=== PATIENT | male | born 1970 | race Caucasian/White ===

== ENCOUNTER 2017-01-02 15:26 | Emergency (ER) | payer OTHER ==
[~2017-01-02] VITALS: Ht 177.8 cm; Wt 99.8 kg
[~2017-01-02 15:26] MED LIST: AMBIEN 10MG TAB10 MG PO; DULOXETINE60 MG PO; EFFEXOR100 MG PO; METHYLPHENIDATE10 MG PO; MODAFINIL100 MG PO; NAPROSYN500 M1 PO; NAPROXEN SODIU500 MG PO; PHENERGAN 25MG.25 M1 PO; PRAMIPEXOLE D0.25 M1 NG; PRAMIPEXOLE DIHY1 M1 PO; ROBAXIN-750750 MG PO; SUBOXONE 8 MG-21 FIL SL; TOPIRAMATE 100100 M1 PO; TOPIRAMATE100 MG PO; TREXIMET 500 MG1 TAB PO; [UNRECOGNIZED DRUG - OTHER] PO
--- NOTE | 2017-01-02 16:10 | RADIOLOGY REPORT PS360 ---
KNEE-3 VIEWS-LT HISTORY: Knee pain following injury INJURIED BOTH KNEES AT WORK YESTERDAY ORDERING PHYSICIAN: QUE CHRISTIAN APRN PATIENT AGE: 46 years COMPARISON: 12/21/2015 FINDINGS: No fracture or dislocation. No lytic or blastic change. Normal mineralization. Tricompartmental osteoarthritic changes are present worse at the patellofemoral joint. No fracture or dislocation. There is a laminated calcific density along the posterior aspect of the knee 2.4 cm consistent with a synovial osteochondroma. IMPRESSION: 1. No acute fracture. 2. Osteoarthritis with synovial osteochondroma
--- NOTE | 2017-01-02 16:11 | RADIOLOGY REPORT PS360 ---
KNEE-3 VIEWS-RT HISTORY: Pain following injury INJURIED BOTH KNEES AT WORK YESTERDAY ORDERING PHYSICIAN: QUE CHRISTIAN APRN PATIENT AGE: 46 years COMPARISON: None FINDINGS: No obvious fracture or dislocation. Mild tricompartmental osteoarthritic changes are present. IMPRESSION: Osteoarthritis, no acute finding
--- NOTE | 2017-01-02 16:14 | Urgent Treatment Center Report ---
History of Present Issue Date/Time Seen by Provider 01/02/17 1613 Visit Reason Pt arrived:Walked Presenting Problem:PT WALKING WITH ALTERED GAIT. STATES HE INJURIED BOTH KNEES YESTERDAY AT WORK WHEN HE WALKED ON A PALLET AND IT BROKE. Location if Accident:Work Onset of symptoms date/time:01/03/17/ or onset unknown for:MEDICAL HX UNKNOWN Have you (or family members/close friends) recently traveled outside the [place]? N If Yes, where/when: Have you had exposure to infectious disease within the past month? TB? Other? Specify: Patient presents with with c/o bilateral knee pain that started yesterday. Injury occurred while working at [employer] at approximately 11:20 on 01/01/17. Patient states he was walking and fell through a wooden pallet twisting and injuring both knees. Hx: arthroscope of bilateral knees (). Rates pain of right knee "8/10" and rates pain of left knee "6/10". Patient missed work today. Has been taking OTC ibuprofen with mild relief. Source patient, family Exam Limitations clinical condition (bilateral knee pain) ALLERGIES Coded Allergies: cephalexin (Mild, 04/05/16) Home Medications Active Scripts Naproxen (Naprosyn 500MG Tab) 500 MG PO BID #14 TAB Prov: 07/04/16 Methocarbamol (Robaxin 750MG) 750 MG PO BID #30 TAB Prov: 04/05/16 Reported Medications METHYLPHENIDATE HCL (Methylphenidate Hydrochloride) 10 MG PO DAILY #180 Topiramate (Topiramate 100MG Tablet) 150 MG PO BID DULOXETINE HCL (Duloxetine) 60 MG PO DAILY #30 Modafinil 100 MG PO BID #60 Topiramate 100 MG PO #60 PRAMIPEXOLE DI-HCL (Pramipexole Dihydrochloride) 1 MG PO PRN PRN MIAGRAINE #30 PRAMIPEXOLE DI-HCL (Pramipexole Dihydrochloride) 0.25 MG NG DAILY #60 Zolpidem Tartrate (Ambien 10MG) 10 MG PO QHS History Medical History General CAD? No Angina: No NV: No Hypertension? No Hyperlipidemia? No CHF? No DVT? No PE? No COPD? No Asthma? No Anemia? No GERD? No Gastric ulcers? No GI Bleed? No Hernia? No Thyroid Problems? No Hypothyroidism? No CVA? No Seizures? No Diabetes? No Renal Insuffiency? No UTI? No Stones? No BPH? No GB Disease: No Nephritic Syndrome? No Asplenia? No Hepatitis? No Sickle Cell Disease? No Arthritis? No Migraines? Yes Cataracts? No Glaucoma? No MRSA? No HIV? No TB? No Anxiety? No Depression? Yes Cancer? No More? Yes Additional hx: SLEEP APNEA Immunization HX DT/Tetanus 1-4 YRS Surgical Hx Previous Surgery?Y OSWALD KNEE SURGERY VARICOSE VEIN REMOVAL APPENDECTOMY LEFT SHOULDER SHARRON HOLE IN SKULL-BLEED RIGHT SHOULDER CRUSHED ANKLE RT Family History Family HX Diabetes No Hypertension No Hyperlipidemia No Cancer No Social History Smoking Hx Smoker: Never Smoker Tobacco: No Alcohol Alcohol: No Review of Systems All Other Systems Reviewed and Negative Constitutional denies chills, denies fever Respiratory denies shortness of breath Cardiovascular denies palpitations Gastrointestinal denies nausea, denies vomiting Musculoskeletal denies joint pain (bilateral knees), denies joint swelling Skin denies change in color Physical Exam Vital Signs Vital Signs Date Time Temp Pulse Resp B/P Pulse O2 O2 Flow FiO2 Ox Delivery Rate 01/02 1737 98.4 74 18 119/57 94 01/02 1542 98.4 74 18 119/57 94 General Appearance normal appearance, WD/WN, no apparent distress Respiratory Status No: respiratory distress, chest symmetrical. Lung Sounds bilateral: normal breath sounds. Cardiovascular normal exam, regular rate/rhythm, no murmur, normal peripheral pulses Peripheral Pulses Pulses normal Yes (DP/PT) Peripheral Pulses 2+ dorsalis pedis (R), 2+ dorsalis pedis (L) Extremities normal capillary refill, no pedal edema, limited range of motion ( bilateral knees), swelling (right knee), Left knee: mildly TTP, no edema/ erythema/ecchymosis noted; limited ROM due to pain with audible moaning noted; moderate crepitus negative tests: García's, Zaki's, Anterior/posterior drawer. Right knee: moderately TTP, mildly edematous without erythema/ecchymosis noted, moderate crepitus; positive García's and Zaki's. Strength 3 Lower Ext (R), 4 Lower Ext (L) Neurologic alert, normal exam, no motor/sensory deficits, oriented x 3, abnormal gait (moderate limp of the right) Reflexes DTR 2+ knee (R), 2+ knee (L), 2+ ankle (R), 2+ ankle (L) Mental status normal mood/affect Medical Decision Making LABS/Meds/Orders Pt receiving controlled substance in ED? No Results/Orders Orders Procedure Date/time Status [facility] STABILIZE JOINT/AREA 01/02 171 Active XRAY/CT/US XRAY/CT/US XRAY knee (bilateral ) XR interpretation by discussed w/radiologist (read report) Xray Results abnormal (read report) Departure Departure Time of Disposition 1705 Disposition DC Home or Self Care(routine) Clinical Impression Primary Impression: Contusion of knee, left Qualifiers: Encounter type: initial encounter Qualified Code: S80.02XA - Contusion of left knee, initial encounter Secondary Impressions: Strain of right knee Qualifiers: Encounter type: initial encounter Qualified Code: S86.911A - Strain of unspecified muscle(s) and tendon(s) at lower leg level, right leg, initial encounter Condition STABLE Referrals Timothy Hauser MD Seen at [facility] for WC injury. Follow-up for bilateral knee contusion and right knee strain. Patient to call and schedule appointment first thing in the morning and notify production bow maker that he was seen at the [facility] clinic. Patient Instructions DI for Contusion, DI for Knee Sprain, How To Perform RICE ( Rest, Ice, Compress, Elevate), How to Use a Knee Immobilizer, How to Use Crutches Discharge Counseling Counseled pt/family regarding diagnosis, test results, medications/RX, home care, follow up needs Prescriptions Current Visit Scripts Ibuprofen (Ibuprofen 800MG) 800 MG PO Q8 PRN bilateral knee pain #90 TAB Diclofenac Sodium (Voltaren) 100 GM TP TID PRN bilateral knee pain #1 TUBE Ref 1 Comments Diclofenac order clarified with [facility] pharmacist; apply 4gm to affected areas tid PRN. at [phone]
--- NOTE | 2017-01-02 16:14 | Urgent Treatment Center Report ---
History of Present Issue Date/Time Seen by Provider 01/02/17 1613 Visit Reason Pt arrived:Walked Presenting Problem:PT WALKING WITH ALTERED GAIT. STATES HE INJURIED BOTH KNEES YESTERDAY AT WORK WHEN HE WALKED ON A PALLET AND IT BROKE. Location if Accident:Work Onset of symptoms date/time:01/03/17/ or onset unknown for:MEDICAL HX UNKNOWN Have you (or family members/close friends) recently traveled outside the [place]? N If Yes, where/when: Have you had exposure to infectious disease within the past month? TB? Other? Specify: Patient presents with with c/o bilateral knee pain that started yesterday. Injury occurred while working at [employer] at approximately 11:20 on 01/01/17. Patient states he was walking and fell through a wooden pallet twisting and injuring both knees. Hx: arthroscope of bilateral knees (). Rates pain of right knee "8/10" and rates pain of left knee "6/10". Patient missed work today. Has been taking OTC ibuprofen with mild relief. Source patient, family Exam Limitations clinical condition (bilateral knee pain) ALLERGIES Coded Allergies: cephalexin (Mild, 04/05/16) Home Medications Active Scripts Naproxen (Naprosyn 500MG Tab) 500 MG PO BID #14 TAB Prov: 07/04/16 Methocarbamol (Robaxin 750MG) 750 MG PO BID #30 TAB Prov: 04/05/16 Reported Medications METHYLPHENIDATE HCL (Methylphenidate Hydrochloride) 10 MG PO DAILY #180 Topiramate (Topiramate 100MG Tablet) 150 MG PO BID DULOXETINE HCL (Duloxetine) 60 MG PO DAILY #30 Modafinil 100 MG PO BID #60 Topiramate 100 MG PO #60 PRAMIPEXOLE DI-HCL (Pramipexole Dihydrochloride) 1 MG PO PRN PRN MIAGRAINE #30 PRAMIPEXOLE DI-HCL (Pramipexole Dihydrochloride) 0.25 MG NG DAILY #60 Zolpidem Tartrate (Ambien 10MG) 10 MG PO QHS History Medical History General CAD? No Angina: No SD: No Hypertension? No Hyperlipidemia? No CHF? No DVT? No PE? No COPD? No Asthma? No Anemia? No GERD? No Gastric ulcers? No GI Bleed? No Hernia? No Thyroid Problems? No Hypothyroidism? No CVA? No Seizures? No Diabetes? No Renal Insuffiency? No UTI? No Stones? No BPH? No GB Disease: No Nephritic Syndrome? No Asplenia? No Hepatitis? No Sickle Cell Disease? No Arthritis? No Migraines? Yes Cataracts? No Glaucoma? No MRSA? No HIV? No TB? No Anxiety? No Depression? Yes Cancer? No More? Yes Additional hx: SLEEP APNEA Immunization HX DT/Tetanus 1-4 YRS Surgical Hx Previous Surgery?Y OSWALD KNEE SURGERY VARICOSE VEIN REMOVAL APPENDECTOMY LEFT SHOULDER SHARRON HOLE IN SKULL-BLEED RIGHT SHOULDER CRUSHED ANKLE RT Family History Family HX Diabetes No Hypertension No Hyperlipidemia No Cancer No Social History Smoking Hx Smoker: Never Smoker Tobacco: No Alcohol Alcohol: No Review of Systems All Other Systems Reviewed and Negative Constitutional denies chills, denies fever Respiratory denies shortness of breath Cardiovascular denies palpitations Gastrointestinal denies nausea, denies vomiting Musculoskeletal denies joint pain (bilateral knees), denies joint swelling Skin denies change in color Physical Exam Vital Signs Vital Signs Date Time Temp Pulse Resp B/P Pulse O2 O2 Flow FiO2 Ox Delivery Rate 01/02 1737 98.4 74 18 119/57 94 01/02 1542 98.4 74 18 119/57 94 General Appearance normal appearance, WD/WN, no apparent distress Respiratory Status No: respiratory distress, chest symmetrical. Lung Sounds bilateral: normal breath sounds. Cardiovascular normal exam, regular rate/rhythm, no murmur, normal peripheral pulses Peripheral Pulses Pulses normal Yes (DP/PT) Peripheral Pulses 2+ dorsalis pedis (R), 2+ dorsalis pedis (L) Extremities normal capillary refill, no pedal edema, limited range of motion ( bilateral knees), swelling (right knee), Left knee: mildly TTP, no edema/ erythema/ecchymosis noted; limited ROM due to pain with audible moaning noted; moderate crepitus negative tests: García's, Zaki's, Anterior/posterior drawer. Right knee: moderately TTP, mildly edematous without erythema/ecchymosis noted, moderate crepitus; positive García's and Zaki's. Strength 3 Lower Ext (R), 4 Lower Ext (L) Neurologic alert, normal exam, no motor/sensory deficits, oriented x 3, abnormal gait (moderate limp of the right) Reflexes DTR 2+ knee (R), 2+ knee (L), 2+ ankle (R), 2+ ankle (L) Mental status normal mood/affect Medical Decision Making LABS/Meds/Orders Pt receiving controlled substance in ED? No Results/Orders Orders Procedure Date/time Status [facility] STABILIZE JOINT/AREA 01/02 171 Active XRAY/CT/US XRAY/CT/US XRAY knee (bilateral ) XR interpretation by discussed w/radiologist (read report) Xray Results abnormal (read report) Departure Departure Time of Disposition 1705 Disposition DC Home or Self Care(routine) Clinical Impression Primary Impression: Contusion of knee, left Qualifiers: Encounter type: initial encounter Qualified Code: S80.02XA - Contusion of left knee, initial encounter Secondary Impressions: Strain of right knee Qualifiers: Encounter type: initial encounter Qualified Code: S86.911A - Strain of unspecified muscle(s) and tendon(s) at lower leg level, right leg, initial encounter Condition STABLE Referrals Timothy Hauser MD Seen at [facility] for WC injury. Follow-up for bilateral knee contusion and right knee strain. Patient to call and schedule appointment first thing in the morning and notify operations technician that he was seen at the [facility] clinic. Patient Instructions DI for Contusion, DI for Knee Sprain, How To Perform RICE ( Rest, Ice, Compress, Elevate), How to Use a Knee Immobilizer, How to Use Crutches Discharge Counseling Counseled pt/family regarding diagnosis, test results, medications/RX, home care, follow up needs Prescriptions Current Visit Scripts Ibuprofen (Ibuprofen 800MG) 800 MG PO Q8 PRN bilateral knee pain #90 TAB Diclofenac Sodium (Voltaren) 100 GM TP TID PRN bilateral knee pain #1 TUBE Ref 1 Comments Diclofenac order clarified with [facility] pharmacist; apply 4gm to affected areas tid PRN. at [phone]
[2017-01-02] MEDS ORDERED: VOLTAREN100 GM TP (17:14)
[2017-01-02] MEDS ORDERED: IBUPROFEN800 MG PO (17:14)
[2017-01-02 17:37] VITALS: BP 119/57
== END 2017-01-02 17:37 | disposition home or self-care (01) ==
LOC: UTC 15:26
PROC: 2W3QX1Z Immobilization of Right Lower Leg using Splint (ICD-10-PCS; principal; 2017-01-02)
DX: S80.02XA Contusion of left knee, initial encounter (principal); S86.911A Strain of unspecified muscle(s) and tendon(s) at lower leg level, right leg, initial encounter; Z88.1 Allergy status to other antibiotic agents; W01.10XA Fall on same level from slipping, tripping and stumbling with subsequent striking against unspecified object, initial encounter; Y92.63 Factory as the place of occurrence of the external cause; Y99.0 Civilian activity done for income or pay

== ENCOUNTER → 2017-01-21 | Outpatient (CLI) | payer OTHER ==
[~2017-01-21] MED LIST changes: +FLONASE 50 MCG16 GM; +IBUPROFEN800 MG PO; +MEDROL 4MG. DOSE4 MG PO; +PROMETHAZINE D118 ML PO; +VOLTAREN100 GM TP; +ZITHROMAX Z PA250 MG PO
--- NOTE | 2017-01-22 07:07 | RADIOLOGY REPORT PS360 ---
MRI-LOW EXT ANY JOINT W/O-RT HISTORY: Posttraumatic pain. Pain laterally ACUTE PAIN OF RIGHT KNEE ORDERING PHYSICIAN: SAADIA BOYD PATIENT AGE: 46 years COMPARISON: Radiograph of 01/02/2017 TECHNIQUE: Standard multiplanar multiecho sequences are performed without contrast. FINDINGS: The cruciate ligaments, collateral ligaments, patellar tendon, and quadriceps tendon appear intact. There is a complex tear involving posterior horn of the medial meniscus having both a longitudinal and horizontal component.. The anterior horn the medial meniscus is unremarkable. There is a horizontal tear involving the interval and of the lateral meniscus. In addition, the posterior horn lateral meniscus is smaller than expected consistent with a tear of the posterior margin with suspected flipped meniscus involving the posterior horn of the lateral meniscus as seen on the coronal image #19 series 7 with meniscus appearing material lying more medial than expected. There are tricompartmental osteoarthritic changes moderate in nature. Osteophytes are present involving all 3 compartments and at the intercondylar and interspinous region. Prominent hypertrophic changes are present along the posterior and proximal aspect of the tibia. On the plain films there was a laminated calcific density in the popliteal fossa. This is not well demonstrated on the MRI and could be better located with CT scan if clinically warranted. There is mild thinning of patellar cartilage. No fracture or dislocation. There is a small knee joint effusion IMPRESSION: 1. Complex tear of the posterior horn of the medial meniscus 2. Horizontal tear of the anterior horn lateral meniscus. 3. Suspected bucket handle tear of the posterior horn of the lateral meniscus with flipped meniscal fragment medially 4. Osteoarthritic change with small knee joint effusion
== END ==
LOC: RAD 10:43
DX: M25.561 Pain in right knee (principal)

== ENCOUNTER 2017-01-29 17:11 | Emergency (ER) | payer OTHER ==
[~2017-01-29] VITALS: Ht 177.8 cm; Wt 97.5 kg
[~2017-01-29 17:11] MED LIST changes: -FLONASE 50 MCG16 GM; -MEDROL 4MG. DOSE4 MG PO; -PROMETHAZINE D118 ML PO; -ZITHROMAX Z PA250 MG PO
--- OUTSIDE RECORDS SUMMARY | 2017-01-29 17:15 | External Medical Summary Rpt | CCD ---
Author Author , TAVARES Organization TAVARES Address Unknown Phone [email or web address] Care Team Providers Care Parish Nurse Name Role Phone YOON NETTLES Unavailable Unavailable TORRES, TORRES Unavailable Unavailable TORRES ALL, TORRES ALL Unavailable Unavailable [facility] Unavailable Unavailable WARD L[facility], Unavailable Unavailable WARD LIS [facility], Unavailable Unavailable [facility] Unavailable Unavailable [place], [facility] [place] [facility] Unavailable Unavailable [place], [facility] [place] [facility] Unavailable Unavailable AND REHA, [facility] ANIA JORGE Unavailable Unavailable [facility] Unavailable Unavailable [facility], [facility] [place] RON, [place] Unavailable Unavailable RON [facility] Unavailable Unavailable INC, [facility] Unavailable [facility]available HOSPITAL P, [facility], Unavailable Unavailable [facility] Unavailable Unavailable [facility], [facility] LORRI BRANCH, LORRI Unavailable Unavailable [facility], Unavailable Unavailable PLLC, [facility] RENUSCH, RENUSCH Unavailable Unavailable RAMEY EDW, RAMEY Unavailable Unavailable EDW SADEK, SADEK Unavailable Unavailable [facility] Unavailable Unavailable [facility] Unavailable Unavailable HOSPITALS, [facility] Purpose Continuity of Care Document - 09-27-2015 through 2016 Problems Code Diagnosis DOS Provider Status [id number] MIGRAINE 07-30-2016 [facility] UNS NOT PHYSICIAN INTRACT W/O GROUP STATUS MIGRAINOSUS 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 R0789 OTHER CHEST 07-04-2016 [facility] R200 ANESTHESIA 07-04-2016 [facility] R51 HEADACHE 07-04-2016 [facility] R600 LOCALIZED 07-04-2016 [facility], [facility] R06965 UNSPECIFIED 04-05-2016 [facility] ED K210 GASTRO-ESOP 04-05-2016 [facility] [facility] REFLUX PLLC DISEASE W/ ESOPHAGITIS K219 GASTRO-ESOP 04-05-2016 E[facility]EN H REFLUX [facility] P WITHOUT ESOPHAGITIS Q02760 OTHER 04-05-2016 [facility], SPASM PLLC R079 CHEST PAIN 04-05-2016 [facility] [id number] PAIN IN 03-09-2016 [facility] U[facility]PEC[facility]IED [facility]EE [facility]PITA [id number] COMPLEX 03-09-2016 [facility] MENISCUS CURR LT KNEE INIT ENC G894 CHRONIC 02-16-2016 [facility] PAIN H SLEEP AND SYNDROME REHA M159 POLYOSTEOAR 02-16-2016 [facility] THRITIS H SLEEP AND UNSPECIFIED REHA T87997 PAIN IN 02-16-2016 [facility] RIGHT H SLEEP AND SHOULDER REHA Q43384 PAIN IN 02-16-2016 [facility] LEFT H SLEEP AND SHOULDER REHA 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 OTH 02-16-2016 [facility] 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 CERV REGION M5412 RADICULOPAT 02-16-2016 [facility] HY CERVICAL H SLEEP AND REGION REHA M7581 OTHER 02-16-2016 [facility] SHOULDER H SLEEP AND LESIONS REHA RIGHT SHOULDER M7582 OTHER 02-16-2016 [facility] SHOULDER H SLEEP AND LESIONS REHA LEFT SHOULDER R202 PARESTHESIA 01-13-2016 [facility] [place] [facility] G8929 OTHER 12-26-2015 [facility] M5080 OTH 12-23-2015 [facility] CERVICAL EAST DISC DISORDERS UNS CERVICAL REGION M1712 UNILATERAL 12-21-2015 [facility] TIS LEFT KNEE [id number] PAIN IN 12-21-2015 [facility] RIGHT KNEE MEM [facility] INC B43044 PAIN IN 12-21-2015 [facility] S06329 ENCOUNTER 12-01-2015 [facility] PHYSICIANS PREPROCEDUR LA AL EXAMINATION Z9889 OTHER 10-25-2015 [facility] SPECIFIED EAST POSTPROCEDU RAL STATES Allergies, Adverse Reactions, Alerts Clinical Alert Notifications Alert Asthma: no influenza vaccine in the last 365 days Medications Na ND Rx Da Fi Fi Am Da Di Ph RX Ph St me C No te ll ll ou ys ag ar # ys at rm s nt no ma ic us Or Da si cy ia de te s n re d ON 57 04 05 9. 3 00 WA Ac DA 23 -2 -1 00 00 L- ti NS 70 4- 9- 0 07 MA ve ET 07 20 20 48 RT RO 71 17 17 42 N 0 39 PH OD AR T MA 4 CY MG #5 TA 91 BL ET TO 68 04 05 60 30 00 AR Ac PI 38 -1 -0 .0 00 L- ti RA 20 3- 5- 00 07 MA ve MA 13 20 20 48 RT TE 91 17 17 22 4 27 PH 50 AR MA MG CY TA #5 BL 91 ET NA 65 03 04 14 7 00 AR Ac OH 16 -3 -2 .0 00 L- ti OX 20 0- 1- 00 07 MA ve EN 19 20 20 47 RT 01 17 17 94 50 1 57 PH 0 AR MG MA CY TA BL #5 ET 91 DE 57 02 03 30 15 00 AR Ac RT 23 -1 -1 .0 00 L- ti AZ 70 0- 0- 00 07 MA ve AP 00 20 20 46 RT IN 83 17 17 99 E 0 87 PH 15 AR MA MG CY TA #5 BL 91 ET DE 57 02 02 15 8 00 AR Ac RT 23 -0 -2 .0 00 L- ti AZ 70 3- 4- 00 07 MA ve AP 00 20 20 46 RT IN 83 17 17 87 E 0 16 PH 15 AR MA MG CY TA #5 BL 91 ET BE 51 01 02 21 7 00 AR Ac NZ 22 -2 -1 .0 00 L- ti ON 40 5- 7- 00 07 MA ve AT 00 20 20 46 RT AT 16 17 17 69 E 0 93 PH 20 AR 0 MA MG CY CA #5 PS 91 UL E OH 13 01 02 60 30 00 AR Ac AM 66 -2 -1 .0 00 L- ti IP 80 5- 7- 00 07 MA ve EX 09 20 20 41 RT OL 29 17 17 86 E 0 87 PH 0. AR 25 MA CY MG #5 TA 91 BL ET OH 00 01 02 10 5 00 AR Ac ED 14 -2 -1 .0 00 L- ti NI 39 5- 7- 00 07 MA ve SO 73 20 20 46 RT NE 80 17 17 69 5 96 PH 20 AR MA MG CY TA #5 BL 91 ET AZ 59 01 02 6. 5 00 AR Ac IT 76 -2 -1 00 00 L- ti HR 23 5- 7- 0 07 MA ve OM 06 20 20 46 RT YC 00 17 17 69 IN 1 95 PH AR 25 MA 0 CY MG #5 TA 91 BL ET VE 00 01 02 18 17 00 WA Ac NT 17 -2 -1 .0 00 L- ti OL 30 5- 7- 00 07 MA ve IN 68 20 20 46 RT 22 17 17 69 HF 0 92 PH A AR 90 MA CY MC G #5 IN 91 BLAKE LE R ON 57 01 02 9. 3 00 WA Ac DA 23 -2 -1 00 00 L- ti NS 70 5- 7- 0 07 MA ve ET 07 20 20 46 RT RO 81 17 17 69 N 0 94 PH OD AR T MA 8 CY MG #5 TA 91 BL ET TO 68 12 01 60 30 00 AR Ac PI 38 -2 -2 .0 00 L- ti RA 20 6- 0- 00 07 MA ve MA 14 20 20 41 RT TE 01 16 17 86 4 81 PH 10 AR 0 MA MG CY TA #5 BL 91 ET ME 00 12 01 30 15 00 AR Ac TH 14 -2 -2 .0 00 L- ti OC 31 9- 0- 00 07 MA ve AR 29 20 20 46 RT BA 20 16 17 15 MO 1 25 PH L AR 75 MA 0 CY MG #5 TA 91 BL ET OH 13 12 01 60 30 00 AR Ac AM 66 -2 -2 .0 00 L- ti IP 80 6- 0- 00 07 MA ve EX 09 20 20 41 RT OL 29 16 17 86 E 0 87 PH 0. AR 25 MA CY MG #5 TA 91 BL ET Procedures Procedure DOS Code Location Performer Comment THERAPEUT 43551 [facility] ANGLE IC 7 PHYSICIAN PROPHYLAC GROUP TIC/DX INJECTION SUBQ/IM INJECTION J1885 [facility] ANGLE 7 PHYSICIAN KETOROLAC GROUP TROMETHAM INE PER 15 MG INJECTION J1885 [facility] ANIA 7 PHYSICIAN KETOROLAC GROUP TROMETHAM INE PER 15 MG THERAPEUT 52512 [facility] ANIA IC 7 PHYSICIAN PROPHYLAC GROUP TIC/DX INJECTION SUBQ/IM INJECTION J2550 [facility] ANIA 7 PHYSICIAN PROMETHAZ GROUP INE HCL UP TO 50 MG CREATINE 19915 E[facility]EN ARELLANO KINASE MB 7 [facility] FRACTION INC INC ONLY COMPREHEN 66346 E[facility] ARELLANO SIVE 7 [facility] METABOLIC INC INC PANEL RADIOLOGI 55092 [facility] C EXAM 7 MEDICAL CHEST 2 IMAGING VIEWS ASS FRONTAL&L ATERAL NATRIURET 87238 [facility] ARELLANO IC 7 [facility] [place] [address] EILEEN ARELLANO TROPONIN 7 MEM HOS[facility]OS[facility] QUANTITAT INC INC BELEM BLOOD 12265 [facility] ARELLANO COUNT 7 [facility] COMPLETE INC INC AUTO&AUTO DIFRNTL WBC ECG 90755 [facility] R[facility] ROUTINE 7 PHYSICIAN ECG S, PLLC W/LEAST 12 LDS I&R ONLY CREATINE 01366 EILEEN ARELLANO KINASE 7 [place] [address] [facility] HEAD/BRAI 7 MEDICAL N W/O IMAGING CONTRAST ASS MATERIAL ECG 81732 EILEEN ARELLANO ROUTINE 7 [facility] ECG INC INC W/LEAST 12 LDS TRCG ONLY W/O I&R FIBRIN 30990 EILEEN ARELLANO DGRADJ 6 MEM H[facility] PRODUCTS INC INC D-DIMER QUAL/SEMI MARIA GUADALUPE ECG 25226 EILEEN ARELLANO ROUTINE 6 [facility] ECG INC INC W/LEAST 12 LDS TRCG ONLY W/O I&R CREATINE 90611 EILEEN ARELLANO KINASE 6 [facility] H[facility]OS[facility] TOTAL INC INC ECG 02576 EILEEN NETTLES ROUTINE 6 [facility] H[facility]PITAL W/LEAST P 12 LDS I&R ONLY BLOOD 58636 [facility] ARELLANO COUNT 6 [facility] COMPLETE INC INC AUTO&[place] [address] EILEEN ARELLANO TROPONIN 6 MEM HOSP MEM [facility]OS[facility] QUANTITAT INC INC BELEM RADIOLOGI 17607 [facility] C EXAM 6 MEDICAL CHEST 2 IMAGING VIEWS ASS FRONTAL&L ATERAL COMPREHEN 16875 EILEEN ARELLANO SIVE 6 MEM HOS[facility]OS[facility] METABOLIC INC INC PANEL CREATINE 09110 EILEEN ARELLANO KINASE MB 6 MEM HOSP MEM HOSP FRACTION INC INC ONLY MRI ANY 23514 [facility] JT LOWER 6 N N EXTREM COMMUNTIY COMMUNTIY W/O HOSPITA HOSPITA CONTRAST MATRL INJECTION A9579 [facility] 6 N N GADOLINIU COMMUNTIY COMMUNTIY [facility] HOSPITA MR CONTRAST NOS ML MRI 12888 [facility] [place] SPINAL 6 RADIOLOGY RON CANAL CERVICAL W/O & W/CONTR [facility] G0463 [facility] [address] CLIN VISIT ASSESS & MGMT PT RADIOLOGI 14007 [facility] C 6 MEDICAL EXAMINATI IMAGING ON KNEE ASS 1/2 VIEWS CREATININ 54693 COMBINED COMBINED E BLOOD 6 PHYSIC[place] [address] COMBINED COMBINED UREA 6 PHYSICIAN PHYSICIAN NITROGEN S LA S LA QUANTITAT [facility] G[address] CLIN VISIT ASSESS & MGMT PT [facility] G[address] CLIN VISIT ASSESS & MGMT PT Encounters Encounter Start End Date Code Location Performer Type Date OFFICE 78073 [facility] PHYSICIAN T VISIT GROUP 15 MINUTES OFFICE 11581 [facility] ANIA [facility] 7 7 PHYSICIAN T VISIT GROUP 15 MINUTES EMERGENCY [address] [facility] DEPT 7 7 PHYSICIAN VISIT S, PLLC HIGH SEVERITY& THREAT [facility] [place] - 7 7 [facility] OUTPATIEN INC T EMERGENCY 31823 [facility] 7 7 [facility] H[facility] DEPARTMEN INC T VISIT MODERATE SEVERITY HOSPITAL [facility] - 6 6 [facility] H[facility] OUTPATIEN INC T EMERGENCY 96223 [facility] 6 6 PHYSICIAN DEPARTMEN S, PLLC T VISIT HIGH/URGE NT SEVERITY HOSPITAL [facility] - 6 6 N OUTPATIEN COMMUNTIY T HOSPITA OFFICE 98441 [facility] OUTPATIEN 6 6 LTH SLEEP JOSE CARLOS T VISIT AND REHA 25 MINUTES [facility] - 6 6 N [facility] 6 [facility] OUTPATIEN E T HOSPITALS OFFICE 91288 OUTPATIEN 6 6 HEALTHCAR T VISIT 5 E MINUTES HOSPITALS OFFICE 34028 [facility] OUTPATIEN 6 6 LTH SLEEP LIS T VISIT AND 25 REHAB MINUTES [facility] - 6 6 [facility] MEM H[facility] OUTPATIEN INC T OFFICE 81538 [facility] RAMEY OUTPATIEN 6 6 LT SLEEP EDW T VISIT & 15 REHABIL MINUTES [facility] [place] [address] 6 [facility] 05504 [facility] OUTPATI[facility] 6 6 LTH SLEEP JOSE CARLOS T NEW 45 AND REHA MINUTES [facility] [place] [address] 6 [facility]
--- OUTSIDE RECORDS SUMMARY | 2017-01-29 17:15 | External Medical Summary Rpt | CCD ---
Author Author , TAVARES Organization TAVARES Address Unknown Phone [email or web address] Care Team Providers Care Compliance Review Specialist Name Role Phone YOON NETTLES Unavailable Unavailable TORRES, TORRES Unavailable Unavailable TORRES ALL, TORRES ALL Unavailable Unavailable [facility] Unavailable Unavailable WARD L[facility], Unavailable Unavailable WARD LIS [facility], Unavailable Unavailable [facility] Unavailable Unavailable [place], [facility] [place] [facility] Unavailable Unavailable [place], [facility] Unavailable Unavailable AND REHA, [facility] ANIA JORGE Unavailable Unavailable [facility] Unavailable Unavailable H[facility]PITA, [facility] [place] RON, [place] Unavailable Unavailable RON [facility] Unavailable Unavailable INC, [facility] Unavailable Unavailable HOSPITAL [facility], Unavailable Unavailable [facility] Unavailable Unavailable [facility], [facility] LORRI BRANCH, LORRI Unavailable Unavailable [facility], Unavailable Unavailable PLLC, [facility] RENUSCH, RENUSCH Unavailable Unavailable RAMEY EDW, RAMEY Unavailable Unavailable EDW SADEK, SADEK Unavailable Unavailable [facility] Unavailable Unavailable [facility] Unavailable Unavailable HOSPITALS, [facility] Purpose Continuity of Care Document - 09-27-2015 through 2016 Problems Code Diagnosis DOS Provider Status [id number] MIGRAINE 07-30-2016 [facility] UNS NOT PHYSICIAN INTRACT W/O GROUP STATUS MIGRAINOSUS 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 R0789 OTHER CHEST 07-04-2016 [facility] R200 ANESTHESIA 07-04-2016 [facility] R51 HEADACHE 07-04-2016 [facility] R600 LOCALIZED 07-04-2016 [facility], [facility] O99236 UNSPECIFIED 04-05-2016 [facility] ED K210 GASTRO-ESOP 04-05-2016 [facility]FLUX PLLC DISEASE W/ ESOPHAGITIS K219 GASTRO-ESOP 04-05-2016 [facility] H REFLUX [facility] P WITHOUT ESOPHAGITIS T85868 OTHER 04-05-2016 [facility], SPASM PLLC R079 CHEST PAIN 04-05-2016 [facility] Z04902 PAIN IN 03-09-2016 [facility] UNSPECIFIED COMMUNTIY KNEE HOSPITA [id number] COMPLEX 03-09-2016 [facility] [place] [facility] MENISCUS CURR LT KNEE INIT ENC G894 CHRONIC 02-16-2016 [facility] PAIN H SLEEP AND SYNDROME REHA M159 POLYOSTEOAR 02-16-2016 [facility] THRITIS H SLEEP AND UNSPECIFIED REHA T85021 PAIN IN 02-16-2016 [facility] RIGHT H SLEEP AND SHOULDER REHA V85545 PAIN IN 02-16-2016 [facility] LEFT H SLEEP [...] [facility] M5080 OTH 12-23-2015 [facility] CERVICAL EAST DISC DISORDERS UNS CERVICAL REGION M1712 UNILATERAL 12-21-2015 [facility] TIS LEFT KNEE Z37294 PAIN IN 12-21-2015 [facility] RIGHT KNEE [facility] INC D07005 PAIN IN 12-21-2015 [facility] Z59828 ENCOUNTER 12-01-2015 [facility] PREPROCEDUR LA AL EXAMINATION Z9889 OTHER 10-25-2015 [facility] SPECIFIED EAST POSTPROCEDU RAL STATES Allergies, [...] TO 68 04 05 60 30 00 OK Ac PI 38 -1 -0 .0 00 L- ti RA 20 3- 5- 00 07 MA ve MA 13 20 20 48 RT TE 91 17 17 22 4 27 PH 50 AR MA MG CY TA #5 BL 91 ET NA 65 03 04 14 7 00 OK Ac GA 16 -3 -2 .0 00 L- ti OX 20 0- 1- 00 07 MA ve EN 19 20 20 47 RT 01 17 17 94 50 1 57 PH 0 AR MG MA CY TA BL #5 ET 91 IA 57 02 03 30 15 00 OK Ac RT 23 -1 -1 .0 00 L- ti AZ 70 0- 0- 00 07 MA ve AP 00 20 20 46 RT IN 83 17 17 99 E 0 87 PH 15 AR MA MG CY TA #5 BL 91 ET IA 57 02 02 15 8 00 OK Ac RT 23 -0 -2 .0 00 L- ti AZ 70 3- 4- 00 07 MA ve AP 00 20 20 46 RT IN 83 17 17 87 E 0 16 PH 15 AR MA MG CY TA #5 BL 91 ET BE 51 01 02 21 7 00 OK Ac NZ 22 -2 -1 .0 00 L- ti ON 40 5- 7- 00 07 MA ve AT 00 20 20 46 RT AT 16 17 17 69 E 0 93 PH 20 AR 0 MA MG CY CA #5 PS 91 UL E GA 13 01 02 60 30 00 OK Ac AM 66 -2 -1 .0 00 L- ti IP 80 5- 7- 00 07 MA ve EX 09 20 20 41 RT OL 29 17 17 86 E 0 87 PH 0. AR 25 MA CY MG #5 TA 91 BL ET GA 00 01 02 10 5 00 OK Ac ED 14 -2 -1 .0 00 L- ti NI 39 5- 7- 00 07 MA ve SO 73 20 20 46 RT NE 80 17 17 69 5 96 PH 20 AR MA MG CY TA #5 BL 91 ET AZ 59 01 02 6. 5 00 OK Ac IT 76 -2 -1 00 00 [...] TO 68 12 01 60 30 00 OK Ac PI 38 -2 -2 .0 00 L- ti RA 20 6- 0- 00 07 MA ve MA 14 20 20 41 RT TE 01 16 17 86 4 81 PH 10 AR 0 MA MG CY TA #5 BL 91 ET ME 00 12 01 30 15 00 OK Ac TH 14 -2 -2 .0 00 L- ti OC 31 9- 0- 00 07 MA ve AR 29 20 20 46 RT BA 20 16 17 15 MO 1 25 PH L AR 75 MA 0 CY MG #5 TA 91 BL ET GA 13 12 01 60 30 00 OK Ac AM 66 -2 -2 .0 00 L- ti IP 80 6- 0- 00 07 MA ve EX 09 20 20 41 RT OL 29 16 17 86 E 0 87 PH 0. AR 25 MA CY MG #5 TA 91 BL ET Procedures Procedure DOS Code Location Performer Comment THERAPEUT 76644 [facility] ANGLE IC 7 PHYSICIAN PROPHYLAC GROUP TIC/DX INJECTION SUBQ/IM INJECTION J1885 [facility] ANGLE 7 PHYSICIAN KETOROLAC GROUP TROMETHAM INE PER 15 MG INJECTION J1885 [facility] ANIA 7 PHYSICIAN KETOROLAC GROUP TROMETHAM INE PER 15 MG THERAPEUT 10470 [facility] ANIA IC 7 PHYSICIAN PROPHYLAC GROUP TIC/DX INJECTION SUBQ/IM INJECTION J2550 [facility] ANIA 7 PHYSICIAN PROMETHAZ GROUP INE HCL UP TO 50 MG CREATINE 74154 E[facility] ARELLANO KINASE MB 7 MEM HOSP [facility] FRACTION INC INC ONLY COMPREHEN 11355 E[facility] ARELLANO SIVE 7 [facility] H[facility] METABOLIC INC INC PANEL RADIOLOGI 89292 [facility] C EXAM 7 MEDICAL CHEST 2 IMAGING VIEWS ASS FRONTAL&L ATERAL NATRIURET 15628 E[facility] ARELLANO IC 7 [facility] [place] [address] EILEEN ARELLANO TROPONIN 7 MEM HOSP MEM HOS[facility] QUANTITAT INC INC BELEM BLOOD 50814 E[facility] ARELLANO COUNT 7 [facility]OS[facility] COMPLETE INC INC AUTO&AUTO DIFRNTL WBC ECG 99753 [facility] R[facility] ROUTINE 7 PHYSICIAN ECG S, PLLC W/LEAST 12 LDS I&R ONLY CREATINE 19819 EILEEN ARELLANO KINASE 7 [place] [address] [facility] HEAD/BRAI 7 MEDICAL N W/O IMAGING CONTRAST ASS MATERIAL ECG 18982 EILEEN ARELLANO ROUTINE 7 [facility] ECG INC INC W/LEAST 12 LDS TRCG ONLY W/O I&R FIBRIN 78369 EILEEN ARELLANO DGRADJ 6 [facility] H[facility] PRODUCTS INC INC D-DIMER QUAL/SEMI MARIA GUADALUPE ECG 06556 EILEEN ARELLANO ROUTINE 6 [facility] MEM HOS[facility] ECG INC INC W/LEAST 12 LDS TRCG ONLY W/O I&R CREATINE 53972 EILEEN ARELLANO KINASE 6 MEM HOSP MEM HOS[facility] TOTAL INC INC ECG 32845 EILEEN NETTLES ROUTINE 6 [facility]PITAL W/LEAST P 12 LDS I&R ONLY BLOOD 77592 EILEEN ARELLANO COUNT 6 MEM H[facility]OS[facility] COMPLETE INC INC AUTO&[place] [address] EILEEN ARELLANO TROPONIN 6 MEM HOSP MEM HOS[facility] QUANTITAT INC INC BELEM RADIOLOGI 09550 [facility] C EXAM 6 MEDICAL CHEST 2 IMAGING VIEWS ASS FRONTAL&L ATERAL COMPREHEN 05609 EILEEN ARELLANO SIVE 6 MEM HOSP MEM HOS[facility] METABOLIC INC INC PANEL CREATINE 98316 EILEEN ARELLANO KINASE MB 6 MEM HOSP MEM HOSP FRACTION INC INC ONLY MRI ANY 64087 [facility] JT LOWER 6 N N EXTREM COMMUNTIY COMMUNTIY W/O HOSPITA HOSPITA CONTRAST MATRL INJECTION A9579 [facility] 6 N N GADOLINIU COMMUNTIY COMMUNTIY [facility] HOSPITA HOSPITA MR CONTRAST NOS ML MRI 93991 [facility] [place] SPINAL 6 RADIOLOGY RON CANAL CERVICAL W/O & W/CONTR [facility] G0463 [facility] OUT[address] CLIN VISIT ASSESS & MGMT PT RADIOLOGI 37181 [facility] ALL C 6 MEDICAL EXAMINATI IMAGING ON KNEE ASS 1/2 VIEWS CREATININ 45124 COMBINED COMBINED E BLOOD 6 PHYSIC[place] [address] COMBINED COMBINED UREA 6 PHYSICIAN PHYSICIAN NITROGEN S LA S LA QUANTITAT [facility] G[address] CLIN VISIT ASSESS & MGMT PT [facility] G[address] CLIN VISIT ASSESS & MGMT PT Encounters Encounter Start End Date Code Location Performer Type Date OFFICE 19633 [facility]IC[facility] T VISIT GROUP 15 MINUTES OFFICE 34586 [facility] ANIA [facility] 7 7 PHYSICIAN T VISIT GROUP 15 MINUTES EMERGENCY 57073 [facility] DEPT 7 7 PHYSICIAN VISIT S, PLLC HIGH SEVERITY& THREAT [facility] - 7 7 [facility] OUTPATIEN INC T EMERGENCY 48577 [facility] 7 7 MEM HOS[facility] DEPARTMEN INC T VISIT MODERATE SEVERITY [facility]OSPITAL [facility] - 6 6 [facility] OUTPATIEN INC T EMERGENCY 17586 [facility] 6 6 PHYSICIAN DEPARTMEN S, PLLC T VISIT HIGH/URGE NT SEVERITY [facility]OSP[facility] - 6 6 N OUTPATIEN COMMUNTIY T HOSPITA OFFICE 28664 [facility] OUTPATIEN 6 6 LTH SLEEP JOSE CARLOS T VISIT AND REHA 25 MINUTES [facility] 6 6 N [facility] 6 6 [facility] OUTPATIEN E T HOSPITALS OFFICE 84345 OUTPATIEN 6 6 HEALTHCAR T VISIT 5 E MINUTES HOSPITALS OFFICE 10916 [facility] OUTPATIEN 6 6 LTH SLEEP LIS T VISIT AND 25 REHAB MINUTES [facility] 6 6 [facility] OUTPATIEN INC T OFFICE 08441 [facility] OUTPATIEN 6 6 LT SLEEP EDW T VISIT & 15 REHABIL MINUTES [facility] [place] [address] 6 [facility] 08775 [facility] 6 6 LTH SLEEP JOSE CARLOS T NEW 45 AND REHA MINUTES [facility] [place] [address] 6 [facility]
--- OUTSIDE RECORDS SUMMARY | 2017-01-29 17:16 | External Medical Summary Rpt | CCD ---
Author Author , TAVARES Organization [facility] Address Unknown Phone [email or web address] Care Team Providers Care Nurse Emergency Name Role Phone YOON NETTLES Unavailable Unavailable ANGLE [facility]BOUR Unavailable Unavailable SYLVIA LIS, Unavailable Unavailable WARD LIS [facility], Unavailable Unavailable [facility] Unavailable Unavailable [place], [facility] [place] [facility]available Unavailable [place], [facility] Un[facility] Unavailable AND REHA, [facility] ANIA JORGE Unavailable Unavailable [facility] Unavailable Unavailable [facility], [facility] [place] RON, [place] Unavailable Unavailable [facility] Unavailable Unavailable INC, [facility] Unavailable [facility]available HOSPITAL P, [facility], Unavailable Unavailable [facility] Unavailable Unavailable [facility], [facility] BUB[facility], Unavailable Unavailable [facility] LORRI JOSE CARLOS, LORRI Unavailable Unavailable JOSE CARLOS [facility], Unavailable Unavailable PLLC, [facility] RENUSCH, RENUSCH Unavailable Unavailable RAMEY EDW, TANVIR Unavailable Unavailable [facility]W [facility], Unavailable Unavailable [facility] Unavailable Unavailable HOSPITALS, [facility] Purpose Continuity of Care Document - 09-27-2015 through 2016 Problems Code Diagnosis DOS Provider Status [id number] MIGRAINE 07-30-[address] [facility] UNS NOT PHYSICIAN INTRACT W/O GROUP STATUS MIGRAINOSUS 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 R0789 OTHER CHEST 07-04-2016 [facility] R200 ANESTHESIA 07-04-2016 [facility] R51 HEADACHE 07-04-2016 [facility] R600 LOCALIZED 07-04-2016 [facility] [id number] UNSPECIFIED 04-05-2016 [facility] ED K210 GASTRO-ESOP 04-05-2016 [facility] DISEASE W/ ESOPHAGITIS K219 GASTRO-ESOP 04-05-2016 [facility] P WITHOUT ESOPHAGITIS [id number] OTHER 04-05-2016 [facility] R079 CHEST PAIN 04-05-2016 [place] [facility] [id number] PAIN IN 03-09-2016 [facility] [id number] COMPLEX 03-09-2016 [facility] [place] [facility] MENISCUS CURR LT KNEE INIT ENC G894 CHRONIC 02-16-2016 [facility] PAIN H SLEEP AND SYNDROME REHA M159 POLYOSTEOAR 02-16-2016 [facility] THRITIS H SLEEP AND UNSPECIFIED REHA I47427 PAIN IN 02-16-2016 [facility] RIGHT H SLEEP AND SHOULDER REHA B41697 PAIN IN 02-16-2016 [facility] LEFT H SLEEP [...] [facility] M5080 OTH 12-23-2015 [facility] DISC DISORDERS UNS CERVICAL REGION M1712 UNILATERAL 12-21-2015 [facility] TIS LEFT KNEE [id number] PAIN IN 12-21-2015 [facility] RIGHT KNEE [facility] INC V56258 PAIN IN 12-21-2015 [place] [facility] B76294 ENCOUNTER 12-01-2015 [facility] PREPROCEDUR [place] AL EXAMINATION Z9889 OTHER 10-25-2015 [facility] POSTPROCEDU RAL STATES Medications Na ND Rx Da Fi Fi [...] TO 68 04 05 60 30 00 NE Ac PI 38 -1 -0 .0 00 L- ti RA 20 3- 5- 00 07 MA ve MA 13 20 20 48 RT TE 91 17 17 22 4 27 PH 50 AR MA MG CY TA #5 BL 91 ET NA 65 03 04 14 7 00 NE Ac WI 16 -3 -2 .0 00 L- ti OX 20 0- 1- 00 07 MA ve EN 19 20 20 47 RT 01 17 17 94 50 1 57 PH 0 AR MG MA CY TA BL #5 ET 91 OK 57 02 03 30 15 00 [facility] RT 23 -1 -1 .0 00 L- ti AZ 70 0- 0- 00 07 MA ve AP 00 20 20 46 RT IN 83 17 17 99 E 0 87 PH 15 AR MA MG CY TA #5 BL 91 ET OK 57 02 02 15 8 00 [facility] RT 23 -0 -2 .0 00 L- ti AZ 70 3- 4- 00 07 MA ve AP 00 20 20 46 RT IN 83 17 17 87 E 0 16 PH 15 AR MA MG CY TA #5 BL 91 ET WI 00 01 02 10 5 00 [facility] ED 14 -2 -1 .0 00 L- ti NI 39 5- 7- 00 07 MA ve SO 73 20 20 46 RT NE 80 17 17 69 5 96 PH 20 AR MA MG CY TA #5 BL 91 ET AZ 59 01 02 6. 5 00 [facility] IT 76 -2 -1 00 00 L- ti HR 23 5- 7- 0 07 MA ve OM 06 20 20 46 RT YC 00 17 17 69 IN 1 95 PH AR 25 MA 0 CY MG #5 TA 91 BL ET VE 00 01 02 18 17 00 NE Ac NT 17 -2 -1 .0 00 L- ti OL 30 5- 7- 00 07 MA ve IN 68 20 20 46 RT 22 17 17 69 HF 0 92 PH A AR 90 MA CY MC G #5 IN 91 BLAKE LE R ON 57 01 02 9. 3 00 NE Ac DA 23 -2 -1 00 00 L- ti NS 70 5- 7- 0 07 MA ve ET 07 20 20 46 RT RO 81 17 17 69 N 0 94 PH OD AR T MA 8 CY MG #5 TA 91 BL ET BE 51 01 02 21 7 00 [facility] [place] 22 -2 -1 .0 00 L- ti ON 40 5- 7- 00 07 MA ve AT 00 20 20 46 RT AT 16 17 17 69 E 0 93 PH 20 AR 0 MA MG CY CA #5 PS 91 UL E WI 13 01 02 60 30 00 NE Ac AM 66 -2 -1 .0 00 L- ti IP 80 5- 7- 00 07 MA ve EX 09 20 20 41 RT OL 29 17 17 86 E 0 87 PH 0. AR 25 MA CY MG #5 TA 91 BL ET WI 13 12 01 60 30 00 NE Ac AM 66 -2 -2 .0 00 L- ti IP 80 6- 0- 00 07 MA ve EX 09 20 20 41 RT OL 29 16 17 86 E 0 87 PH 0. AR 25 MA CY MG #5 TA 91 BL ET TO 68 12 01 60 30 00 NE Ac PI 38 -2 -2 .0 00 L- ti RA 20 6- 0- 00 07 MA ve MA 14 20 20 41 RT TE 01 16 17 86 4 81 PH 10 AR 0 MA MG CY TA #5 BL 91 ET ME 00 12 01 30 15 00 [facility] TH 14 -2 -2 .0 00 L- ti OC 31 9- 0- 00 07 MA ve AR 29 20 20 46 RT BA 20 16 17 15 MO 1 25 PH L AR 75 MA 0 CY MG #5 TA 91 BL ET Procedures Procedure DOS Code Location Performer Comment INJECTION [id number] [facility] ANGLE 7 PHYSICIAN KETOROLAC GROUP TROMETHAM INE PER 15 MG THERAPEUT [address] [facility] ANGLE IC 7 PHYSICIAN PROPHYLAC GROUP TIC/DX INJECTION SUBQ/IM THERAPEUT [address] [facility] ANIA DE LA CRUZ 7 PHYSICIAN PROPHYLAC GROUP TIC/DX INJECTION SUBQ/IM INJECTION J18[address] [facility] ANIA 7 PHYSICIAN KETOROLAC GROUP TROMETHAM INE PER 15 MG INJECTION J25[address] [facility] ANIA 7 PHYSICIAN PROMETHAZ GROUP INE HCL UP TO 50 MG NATRIURET 28099 [facility] ARELLANO IC 7 [facility] [place] [address] [facility] ARELLANO TROPONIN 7 [facility] QUANTITAT INC INC BELEM COMPREHEN 75543 [facility] ARELLANO SIVE 7 [facility] METABOLIC INC INC PANEL BLOOD 39451 [facility] ARELLANO COUNT 7 [facility] COMPLETE INC INC AUTO&AUTO DIFRNTL WBC RADIOLOGI 67469 [facility] ARELLANO C EXAM 7 [facility] CHEST 2 INC INC VIEWS FRONTAL&L ATERAL ECG 85037 [facility] NETTLES ROUTINE 7 [facility] W/LEAST P 12 LDS I&R ONLY CREATINE 06832 [facility] ARELLANO KINASE 7 [facility] [place] [address] E[facility] ARELLANO HEAD/BRAI 7 [facility] N W/O INC INC CONTRAST MATERIAL ECG 63769 E[facility] ARELLANO ROUTINE 7 [facility] ECG INC INC W/LEAST 12 LDS TRCG ONLY W/O I&R CREATINE 22344 E[facility]EN ARELLANO KINASE MB 7 [facility] FRACTION INC INC ONLY CREATINE 29034 EILEEN ARELLANO KINASE MB 6 [facility] FRACTION INC INC ONLY ECG 18763 EILEEN ARELLANO ROUTINE 6 [facility] ECG INC INC W/LEAST 12 LDS TRCG ONLY W/O I&R FIBRIN 73100 E[facility]EN ARELLANO DGRADJ 6 [facility] PRODUCTS INC INC D-DIMER QUAL/SEMI MARIA GUADALUPE CREATINE 57441 E[facility] ARELLANO KINASE 6 [facility] TOTAL INC INC RADIOLOGI 66459 EILEEN ARELLANO C EXAM 6 [facility] CHEST 2 INC INC VIEWS FRONTAL&L ATERAL ECG 74550 E[facility]EN NETTLES ROUTINE 6 [facility] W/LEAST P 12 LDS I&R ONLY BLOOD 47183 EILEEN ARELLANO COUNT 6 [facility] COMPLETE INC INC AUTO&AUTO DIFRNTL WBC COMPREHEN 97239 E[facility] ARELLANO SIVE 6 [facility] [place] [address] EILEEN ARELLANO TROPONIN 6 [facility] QUANTITAT INC [place] ANY [address] [facility] [place] [facility] JT LOWER 6 RADIOLOGY BUBBA EXTREM W/O CONTRAST MATRL INJECTION A9579 [facility] 6 N N [place]ADOL[place] COMMUNTIY COMMUNTIY [facility] MR CONTRAST NOS ML MRI [address]102 [facility] [place] SPINAL 6 RADIOLOGY RON CANAL CERVICAL W/O & W/CONTR [facility] G[address]63 [address] CLIN VISIT ASSESS & MGMT PT RADIOLOGI 19611 E[facility] ARELLANO C 6 [facility] EXAMINATI INC INC ON KNEE 1/2 VIEWS CREATININ 65457 COMBINED COMBINED E BLOOD 6 [place] [address] COMBINED COMBINED UREA 6 PHYSICIAN PHYSICIAN NITROGEN S LA S LA QUANTITAT [facility] G[address]63 [address] CLIN VISIT ASSESS & MGMT PT [facility] G[address]63 [address] CLIN VISIT ASSESS & MGMT PT Encounters Encounter Start End Date Code Location Performer Type Date OFFICE [address] [facility] PHYSICIAN T VISIT GROUP 15 MINUTES OFFICE [address] [facility] ANIA [facility] 7 7 PHYSICIAN T VISIT GROUP 15 MINUTES HOSPITAL [facility] - 7 7 [facility] OUTPATIEN INC T EMERGENCY 73071 [facility] 7 7 [facility] DEPARTMEN INC T VISIT MODERATE SEVERITY EMERGENCY 48443 [facility] DEPT 7 7 PHYSICIAN VISIT S, PLLC HIGH SEVERITY& THREAT FUNCJ EMERGENCY 91923 [facility] 6 6 [facility] DEPARTMEN INC T VISIT HIGH/URGE NT SEVERITY HOSPITAL [facility] - 6 6 [facility] OUTPATIEN INC T HOSPITAL [facility] 6 6 N OUTPATIEN COMMUNTIY HOSPITA OFFICE 61830 [facility] 6 6 [facility] SLEEP JOSE CARLOS T VISIT AND REHA 25 MINUTES HOSPITAL [facility] - 6 6 N OUTPATI[facility] OUTPATI[facility] E T HOSPITALS OFFICE 83664 [facility] 6 6 [facility] T VISIT 5 E MINUTES HOSPITALS OFFICE 82305 [facility] 6 LT SLEEP LIS T VISIT AND 25 REHAB MINUTES [facility] - 6 6 [facility] 6 6 [facility] - 6 6 [facility] OFFICE 81003 [facility] 6 [facility] SLEEP EDW T VISIT & 15 REHABIL MINUTES [facility] - 6 6 [facility] OFFICE 27838 [facility] 6 6 LT SLEEP JOSE CARLOS T NEW 45 AND REHA MINUTES
--- OUTSIDE RECORDS SUMMARY | 2017-01-29 17:16 | External Medical Summary Rpt | CCD ---
Author Author , TAVARES Organization [facility] Address Unknown Phone [email or web address] Care Team Providers Care Machine Trimmer Name Role Phone YOON NETTLES Unavailable Unavailable ANGLE BARBOUR Unavailable Unavailable SYLVIA LIS, Unavailable Unavailable WARD LIS [facility], Unavailable Unavailable [facility]available Unavailable [place], [facility] [place] [facility] Unavailable Unavailable [place], [facility] Unavailable Unavailable AND REHA, [facility] ANIA JORGE Unavailable Unavailable [facility] Unavailable Unavailable [facility], [facility] [place] RON, [place] Unavailable Unavailable RON [facility] Unavailable Unavailable INC, [facility] Unavailable [facility]available HOSPITAL P, [facility], Unavailable Unavailable [facility] [facility] Unavailable Unavailable [facility], [facility] KOSTELIC BUBBA, Unavailable Unavailable [facility] LORRI JOSE CARLOS, LORRI Unavailable Unavailable JOSE CARLOS [facility], Unavailable Unavailable PLLC, [facility] RENUSCH, RENUSCH Unavailable Unavailable RAMEY EDW, TANVIR Unavailable Unavailable [facility], Unavailable Unavailable [facility] Unavailable Unavailable HOSPITALS, [facility] Purpose Continuity of Care Document - 09-27-2015 through 2016 Problems Code Diagnosis DOS Provider Status [id number] MIGRAINE 07-30-2016 [facility] UNS NOT PHYSICIAN INTRACT W/O GROUP STATUS MIGRAINOSUS 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 R0789 OTHER CHEST 07-04-2016 [facility] R200 ANESTHESIA 07-04-2016 [place] [facility] R51 HEADACHE 07-04-2016 [facility] R600 LOCALIZED 07-04-2016 [facility] [id number] UNSPECIFIED 04-05-2016 [facility] ED K210 GASTRO-ESOP 04-05-2016 [facility] DISEASE W/ ESOPHAGITIS K219 GASTRO-ESOP 04-05-2016 [facility] P WITHOUT ESOPHAGITIS P13983 OTHER 04-05-2016 [facility] R079 CHEST PAIN 04-05-2016 [place] [facility]PEC[facility] Q55259 PAIN IN 03-09-2016 [facility]EE HOSPITA [id number] COMPLEX 03-09-2016 [facility] [place] [facility] MENISCUS CURR LT KNEE INIT ENC G894 CHRONIC 02-16-2016 [facility] PAIN H SLEEP AND SYNDROME REHA M159 POLYOSTEOAR 02-16-2016 [facility] THRITIS H SLEEP AND UNSPECIFIED REHA U33070 PAIN IN 02-16-2016 [facility] RIGHT H SLEEP AND SHOULDER REHA O90734 PAIN IN 02-16-2016 [facility] LEFT H SLEEP [...] [facility]OSPITALS M5080 OTH 12-23-2015 [facility] DISC DISORDERS UNS CERVICAL REGION M1712 UNILATERAL 12-21-2015 [place] [facility] TIS LEFT KNEE E28367 PAIN IN 12-21-2015 [facility] RIGHT [facility]NEE [facility] INC U25207 PAIN IN 12-21-2015 [place] [facility] V84332 ENCOUNTER 12-01-2015 [facility] PREPROCEDUR LA AL EXAMINATION Z9889 OTHER 10-25-2015 [facility] POSTPROCEDU RAL STATES Medications Na ND Rx [...] TO 68 04 05 60 30 00 [place] Ac PI 38 -1 -0 .0 00 L- ti RA 20 3- 5- 00 07 MA ve MA 13 20 20 48 RT TE 91 17 17 22 4 27 PH 50 AR MA MG CY TA #5 BL 91 ET NA 65 03 04 14 7 00 [place] Ac FL 16 -3 -2 .0 00 L- ti OX 20 0- 1- 00 07 MA ve EN 19 20 20 47 RT 01 17 17 94 50 1 57 PH 0 AR MG MA CY TA BL #5 ET 91 MD 57 02 03 30 15 00 [facility] RT 23 -1 -1 .0 00 L- ti AZ 70 0- 0- 00 07 MA ve AP 00 20 20 46 RT IN 83 17 17 99 E 0 87 PH 15 AR MA MG CY TA #5 BL 91 ET MD 57 02 02 15 8 00 [facility] RT 23 -0 -2 .0 00 L- ti AZ 70 3- 4- 00 07 MA ve AP 00 20 20 46 RT IN 83 17 17 87 E 0 16 PH 15 AR MA MG CY TA #5 BL 91 ET FL 00 01 02 10 5 00 [facility] ED 14 -2 -1 .0 00 L- ti NI 39 5- 7- 00 07 MA ve SO 73 20 20 46 RT NE 80 17 17 69 5 96 PH 20 AR MA MG CY TA #5 BL 91 ET AZ 59 01 02 6. 5 00 [facility] IT 76 -2 -1 00 00 L- ti HR 23 5- 7- 0 07 MA ve OM 06 20 20 46 RT YC 00 17 17 69 IN 1 95 PH AR 25 MA 0 CY MG #5 TA 91 BL ET VE 00 01 02 18 17 00 [place] Ac NT 17 -2 -1 .0 00 L- ti OL 30 5- 7- 00 07 MA ve IN 68 20 20 46 RT 22 17 17 69 HF 0 92 PH A AR 90 MA CY MC G #5 IN 91 BLAKE LE R ON 57 01 02 9. 3 00 [place] Ac DA 23 -2 -1 00 00 L- ti NS 70 5- 7- 0 07 MA ve ET 07 20 20 46 RT RO 81 17 17 69 N 0 94 PH OD AR T MA 8 CY MG #5 TA 91 BL ET BE 51 01 02 21 7 00 [facility] NZ 22 -2 -1 .0 00 L- ti ON 40 5- 7- 00 07 MA ve AT 00 20 20 46 RT AT 16 17 17 69 E 0 93 PH 20 AR 0 MA MG CY CA #5 PS 91 UL E FL 13 01 02 60 30 00 [place] Ac AM 66 -2 -1 .0 00 L- ti IP 80 5- 7- 00 07 MA ve EX 09 20 20 41 RT OL 29 17 17 86 E 0 87 PH 0. AR 25 MA CY MG #5 TA 91 BL ET FL 13 12 01 60 30 00 [place] Ac AM 66 -2 -2 .0 00 L- ti IP 80 6- 0- 00 07 MA ve EX 09 20 20 41 RT OL 29 16 17 86 E 0 87 PH 0. AR 25 MA CY MG #5 TA 91 BL ET TO 68 12 01 60 30 00 [place] Ac PI 38 -2 -2 .0 00 L- ti RA 20 6- 0- 00 07 MA ve MA 14 20 20 41 RT TE 01 16 17 86 4 81 PH 10 AR 0 MA MG CY TA #5 BL 91 ET ME 00 12 01 30 15 00 [facility] TH 14 -2 -2 .0 00 L- ti OC 31 9- 0- 00 07 MA ve AR 29 20 20 46 RT BA 20 16 17 15 MO 1 25 PH L AR 75 MA 0 CY MG #5 TA 91 BL ET Procedures Procedure DOS Code Location Performer Comment INJECTION J1885 [facility] ANGLE 7 PHYSICIAN KETOROLAC GROUP TROMETHAM INE PER 15 MG THERAPEUT 42906 [facility] ANGLE IC 7 PHYSICIAN PROPHYLAC GROUP TIC/DX INJECTION SUBQ/IM THERAPEUT 27366 [facility] ANIA DE LA CRUZ 7 PHYSICIAN PROPHYLAC GROUP TIC/DX INJECTION SUBQ/IM INJECTION J1885 [facility] ANIA 7 PHYSICIAN KETOROLAC GROUP TROMETHAM INE PER 15 MG INJECTION J2550 [facility] ANIA 7 PHYSICIAN PROMETHAZ GROUP INE HCL UP TO 50 MG NATRIURET 76726 [facility] ARELLANO IC 7 [facility] [place] [address] EILEEN ARELLANO TROPONIN 7 [facility] QUANTITAT INC INC BELEM COMPREHEN 61781 [facility] ARELLANO SIVE 7 [facility] METABOLIC INC INC PANEL BLOOD 35008 [facility] ARELLANO COUNT 7 [facility] COMPLETE INC INC AUTO&AUTO DIFRNTL WBC RADIOLOGI 11589 [facility] ARELLANO C EXAM 7 [facility] CHEST 2 INC INC VIEWS FRONTAL&L ATERAL ECG 65847 E[facility]EN NETTLES ROUTINE 7 [facility] W/LEAST P 12 LDS I&R ONLY CREATINE 42096 EILEEN ARELLANO KINASE 7 [facility] [place] [address] EILEEN ARELLANO HEAD/BRAI 7 [facility] N W/O INC INC CONTRAST MATERIAL ECG 68510 EILEEN ARELLANO ROUTINE 7 [facility] ECG INC INC W/LEAST 12 LDS TRCG ONLY W/O I&R CREATINE 33965 EILEEN ARELLANO KINASE MB 7 [facility] FRACTION INC INC ONLY CREATINE 51025 EILEEN ARELLANO KINASE MB 6 [facility] FRACTION INC INC ONLY ECG 15834 EILEEN ARELLANO ROUTINE 6 [facility] ECG INC INC W/LEAST 12 LDS TRCG ONLY W/O I&R FIBRIN 60394 EILEEN ARELLANO DGRADJ 6 [facility]OS[facility] PRODUCTS INC INC D-DIMER QUAL/SEMI MARIA GUADALUPE CREATINE 84137 EILEEN ARELLANO KINASE 6 [facility] TOTAL INC INC RADIOLOGI 35631 EILEEN ARELLANO C EXAM 6 [facility] CHEST 2 INC INC VIEWS FRONTAL&L ATERAL ECG 34780 EILEEN NETTLES ROUTINE 6 [facility] W/LEAST P 12 LDS I&R ONLY BLOOD 54900 EILEEN ARELLANO COUNT 6 [facility] COMPLETE INC INC AUTO&AUTO DIFRNTL WBC COMPREHEN 01122 EILEEN ARELLANO SIVE 6 [facility] [place] [address] EILEEN ARELLANO TROPONIN 6 [facility] HOS[facility] QUANTITAT [place] [address] [facility] [place] [facility] JT LOWER 6 RADIOLOGY BUBBA EXTREM W/O CONTRAST MATRL INJECTION A9579 [facility] 6 N N GADOLINIU COMMUNTIY COMMUNTIY [facility] [place] [address] [facility] [place] SPINAL 6 RADIOLOGY RON CANAL CERVICAL W/O & W/CONTR [facility] G0463 [address] CLIN VISIT ASSESS & MGMT PT RADIOLOGI 43250 EILEEN ARELLANO C 6 [facility] EXAMINATI INC INC ON KNEE 1/2 VIEWS CREATININ 71813 COMBINED COMBINED E BLOOD 6 PHYSIC[place] [address] COMBINED COMBINED UREA 6 PHYSICIAN PHYSICIAN NITROGEN S LA S LA QUANTITAT [facility] G0463 [address] CLIN VISIT ASSESS & MGMT PT [facility] G[address]63 [address] CLIN VISIT ASSESS & MGMT PT Encounters Encounter Start End Date Code Location Performer Type Date OFFICE 03451 [facility] PHYSICIAN T VISIT GROUP 15 MINUTES OFFICE 67829 [facility] ANIA [facility] 7 7 PHYSICIAN T VISIT GROUP 15 MINUTES HOSPITAL [facility] - 7 7 [facility] OUTPATIEN INC T EMERGENCY 50926 [facility] 7 7 [facility] DEPARTMEN INC T VISIT MODERATE SEVERITY EMERGENCY 59726 [facility] DEPT 7 7 PHYSICIAN VISIT S, PLLC HIGH SEVERITY& THREAT FUNCJ EMERGENCY 51746 [facility] 6 6 [facility] DEPARTMEN INC T VISIT HIGH/URGE NT SEVERITY HOSP[facility] - 6 6 [facility] 6 6 N OUTPATIEN COMMUNTIY HOSPITA OFFICE [id number] [facility] 6 6 [facility] SLEEP JOSE CARLOS T VISIT AND REHA 25 MINUTES [facility] - 6 6 N [facility] OUT[facility]IEN E T [facility]OSPITALS OFFICE 12636 [facility] 6 6 [facility] T [facility]ISIT 5 E MINUTES HOSPITALS OFFICE 13001 [facility] LT [facility]EP LIS T VISIT AND 25 REHAB MINUTES [facility] 6 6 [facility] 6 [facility] 6 6 [facility] OFFICE [id number] [facility] SLEEP EDW T VISIT & 15 REHABIL MINUTES [facility] 6 6 [facility] OFFICE 06563 [facility] OUTPATIEN 6 6 LT SLEEP JOSE CARLOS T NEW 45 AND REHA MINUTES
--- OUTSIDE RECORDS SUMMARY | 2017-01-29 17:16 | External Medical Summary Rpt | CCD ---
Demographics Preferred Language [place] Marital Status Unknown Zoroastrianism Affiliation Unknown Race Unknown Ethnic Group Unknown Author Author , TAVARES CHAPIN Address Unknown Phone Immunization No patient found.
--- OUTSIDE RECORDS SUMMARY | 2017-01-29 17:16 | External Medical Summary Rpt ---
Author Author TAVARES Guzmán, [employer] Address Unknown Phone Unavailable
--- OUTSIDE RECORDS SUMMARY | 2017-01-29 17:16 | External Medical Summary Rpt | CCD ---
Demographics Preferred Language [place] Marital Status Unknown Restoration Affiliation Unknown Race Unknown Ethnic Group Unknown Author Author , TAVARES CHAPIN Address Unknown Phone Immunization No patient found.
[2017-01-29 18:04] LABS: UTC STREP SCREEN NOT DETECTED (NOTDETECTED)
[2017-01-29] MEDS ORDERED: FLONASE 50 MCG16 GM (18:05)
[2017-01-29] MEDS ORDERED: MEDROL 4MG. DOSE4 MG PO (18:05)
[2017-01-29] MEDS ORDERED: ZITHROMAX Z PA250 MG PO (18:05)
[2017-01-29] MEDS ORDERED: PROMETHAZINE D118 ML PO (18:05)
--- NOTE | 2017-01-29 18:06 | [facility] Report ---
History of Present Issue Date/Time Seen by Provider 01/29/17 1046 Visit Reason Pt arrived:Walked Presenting Problem:C/O HEAD CONGESTION, NAUSEA, SORE THROAT, AND BOTH EARS HURTING Location if Accident: Onset of symptoms date/time:/ or onset unknown for:MEDICAL HX UNKNOWN Have you (or family members/close friends) recently traveled outside the [place]? N If Yes, where/when: Have you had exposure to infectious disease within the past month? TB? Other? Specify: Patient state that he has not been feeling well since Saturday State that it has continued to get worse. State that he has been having head congestion, sinus congestion, sore throat bilateral ear pain and nausea State that he feels like he may have strep throat because his throat is so sore and hurts when he swallows ALLERGIES Coded Allergies: cephalexin (Mild, 04/05/16) Home Medications Active Scripts Ibuprofen (Ibuprofen 800MG) 800 MG PO Q8 PRN bilateral knee pain #90 TAB Prov: 01/02/17 Diclofenac Sodium (Voltaren) 100 GM TP TID PRN bilateral knee pain #1 TUBE Ref 1 Prov: 01/02/17 Naproxen (Naprosyn 500MG Tab) 500 MG PO BID #14 TAB Prov: 07/04/16 Methocarbamol (Robaxin 750MG) 750 MG PO BID #30 TAB Prov: 04/05/16 Reported Medications METHYLPHENIDATE HCL (Methylphenidate Hydrochloride) 10 MG PO DAILY #180 Topiramate (Topiramate 100MG Tablet) 150 MG PO BID DULOXETINE HCL (Duloxetine) 60 MG PO DAILY #30 Modafinil 100 MG PO BID #60 Topiramate 100 MG PO #60 PRAMIPEXOLE DI-HCL (Pramipexole Dihydrochloride) 1 MG PO PRN PRN MIAGRAINE #30 PRAMIPEXOLE DI-HCL (Pramipexole Dihydrochloride) 0.25 MG NG DAILY #60 Zolpidem Tartrate (Ambien 10MG) 10 MG PO QHS History Medical History General CAD? No Angina: No [place]: No Hypertension? No Hyperlipidemia? No CHF? No DVT? No PE? No COPD? No Asthma? No Anemia? No GERD? No Gastric ulcers? No GI Bleed? No Hernia? No Thyroid Problems? No Hypothyroidism? No CVA? No Seizures? No Diabetes? No Renal Insuffiency? No UTI? No Stones? No BPH? No GB Disease: No Nephritic Syndrome? No Asplenia? No Hepatitis? No Sickle Cell Disease? No Arthritis? No Migraines? Yes Cataracts? No Glaucoma? No MRSA? No HIV? No TB? No Anxiety? No Depression? Yes Cancer? No More? Yes Additional hx: SLEEP APNEA Immunization HX DT/Tetanus 1-4 YRS Surgical Hx Previous Surgery?Y [facility] KNEE SURGERY VARICOSE VEIN REMOVAL APPENDECTOMY LEFT SHOULDER SHARRON HOLE IN SKULL-BLEED RIGHT SHOULDER CRUSHED ANKLE RT Family History Family HX Diabetes No Hypertension No Hyperlipidemia No Cancer No Social History Smoking Hx Smoker: Never Smoker Tobacco: No Alcohol Alcohol: No Review of Systems All Other Systems Reviewed and Negative Constitutional chills, fever ENT ear pain, nose congestion, throat pain, throat swelling. Respiratory cough, denies shortness of breath, denies wheezing Physical Exam Vital Signs Vital Signs Date Time Temp Pulse Resp B/P Pulse O2 O2 Flow FiO2 Ox Delivery Rate 01/29 1743 97.9 90 20 125/73 98 General Appearance normal appearance, WD/WN, no apparent distress Ear, Nose, Throat Throat red, irritated drainage noted, tenderness noted maxillary sinsues Respiratory Status Yes: trachea midline, chest symmetrical. No: respiratory distress. Lung Sounds bilateral: normal breath sounds, lungs clear. Cardiovascular normal exam, regular rate/rhythm Neurologic alert, normal exam, oriented x 3 Medical Decision Making LABS/Meds/Orders Pt receiving controlled substance in ED? No Results/Orders Laboratory Tests 01/29/171744: Influenza Type A Ag NOT DETECTED, Influenza Type B Ag NOT DETECTED, Group A Strep Screen NOT DETECTED Orders Procedure Date/time Status UTC STREP SCREEN 01/29 1745 Complete [place] FLU A,B 01/29 1745 Complete Departure Departure Time of Disposition 1801 Disposition DC Home or Self Care(routine) Clinical Impression Primary Impression: Upper respiratory infection Qualifiers: URI type: unspecified URI Qualified Code: J06.9 - Acute upper respiratory infection, unspecified Condition STABLE Referrals Carolyn Crawford MD (Family): 2 Days-Call Office if no improvement in symptoms Patient Instructions DI for Ear Pain-Adult, DI for Nasal Congestion, Sore Throat Additional Instructions * Monitor Temp. Tylenol and/or Ibuprofen as needed. ER if fever is no less than 101 despite alternating Tylenol and Ibuprofen * Encourage fluids, water, Gatorade, powerade, pedialyte if infant/toddler/or child * Warm salt water gargles for throat irritation *Warm fluids *Sore throat lozenges *Sleep elevated *humidifier or vaporizer Lots of rest Increase fluids, water, Gatorade, powerade *Flonase 2 sprays each nostril daily but may take 2-3 days to notice improvement with it *Your throat swab was sent to lab for culture. Those results area typically sent to your primary care physician. Be sure to follow up in 2-3 days if no improvement so they can review those results and treat if necessary If you dont have primary care I recommend you get one, but in the mean time you will have to return to a walk in clinic Follow up IMMEDIATELY for new or worsening of symptoms OR no noticeable improvement over the next 48-72 hours. 911 immediately for any life threatening symptoms such as chest pain or difficulty breathing Discharge Counseling Counseled pt/family regarding diagnosis, test results, medications/RX, home care, follow up needs Prescriptions Current Visit Scripts Azithromycin (Zithromycin (Z-CHARAN) 250MG Tab) 250 MG PO DAILY #6 TAB TAKE TWO (2) TABLETS ON DAY 1, THEN ONE (1) TABLET DAY #2 THRU #5 Fluticasone Propionate (Flonase 50 Mcg Nasal [place]) 2 SPRAY NA DAILY #1 BOT Methylprednisolone (Medrol Dose Charan) 4 MG PO UD #1 CHARAN TAKE DIRECTED ON PACKAGING PROMETHAZINE/DEXTROMETHORPHAN (Promethazine-Dm Syrup) 5 ML PO Q6HP PRN cough #120 SYR at 1805
[2017-01-29 18:11] VITALS: BP 125/73
== END 2017-01-29 18:23 | disposition home or self-care (01) ==
LOC: UTC 17:11
PROVIDERS: Nurse Practitioner
DX: J06.9 Acute upper respiratory infection, unspecified (principal)